=== PATIENT | female | born 1945 | race Caucasian/White ===

== ENCOUNTER 2021-03-14 10:53 | Emergency (ER) | payer MEDICARE, OTHER ==
[~2021-03-14] VITALS: Ht 162.6 cm; Wt 90.0 kg
[~2021-03-14 10:53] MED LIST: ASPI-482 PO; ATOR20TA PO; DULO60CA45 PO; HYDR-3164 PO; LEVO25TA4 PO; LISI20TA18 PO; TRAZ-118 PO; VARE1TAB5 PO
[2021-03-14 12:12] VITALS: BP 195/97
--- NOTE | 2021-03-14 12:23 | PHYS DOC ---
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 Patient was seen in the doctor's office her blood pressure [id number] and they sent her to the emergency department for evaluation. Patient states that she did not take her blood pressure medications this morning she says its been a really bad morning and that she did not sleep very well and she forgot to take her meds before going to a doctor's appointment. Patient denies chest pain, shortness of air, fever, chills, or abdominal pain at this time. Review of Systems: Review of Systems: Constitutional: Denies fever or chills. [] Eyes: Denies change in visual acuity. [] HENT: Denies nasal congestion or sore throat. [] Respiratory: Denies cough or shortness of breath. [] Cardiovascular: Denies chest pain or edema. [] GI: Denies abdominal pain, nausea, vomiting, bloody stools or diarrhea. [] : Denies dysuria. [] Musculoskeletal: Denies back pain or joint pain. [] Integument: Denies rash. [] Neurologic: Denies headache, focal weakness or sensory changes. [] Endocrine: Denies polyuria or polydipsia. [] Lymphatic: Denies swollen glands. [] Psychiatric: Denies depression or anxiety. [] Heart Score: C/O Chest Pain: N/A Risk Factors: Risk Factors: DM, Current or recent (<one month) smoker, HTN, HLP, family history of CAD, obesity. Risk Scores: Score 0 - 3: 2.5% MACE over next 6 weeks - Discharge Home Score 4 - 6: 20.3% MACE over next 6 weeks - Admit for Clinical Observation Score 7 - 10: 72.7% MACE over next 6 weeks - Early Invasive Strategies Allergies: Allergies: Allergies Coded Allergies Type Severity Reaction Last Updated Verified No Known Drug Allergies 11/15/15 No Physical Exam: PE: Constitutional: Well developed, well nourished, no acute distress, non-toxic appearance. [] HENT: Normocephalic, atraumatic, bilateral external ears normal, oropharynx moist, no oral exudates, nose normal. [] Eyes: PERRLA, EOMI, conjunctiva normal, no discharge. [] Neck: Normal range of motion, no tenderness, supple, no stridor. [] Cardiovascular:Heart rate regular rhythm, no murmur [] Lungs & Thorax: Bilateral breath sounds clear to auscultation [] Abdomen: Bowel sounds normal, soft, no tenderness, no masses, no pulsatile masses. [] Skin: Warm, dry, no erythema, no rash. [] Back: No tenderness, no CVA tenderness. [] Extremities: No tenderness, no cyanosis, no clubbing, ROM intact, no edema. [] Neurologic: Alert and oriented X 3, normal motor function, normal sensory function, no focal deficits noted. [] Psychologic: Affect normal, judgement normal, mood normal. [] Current Patient Data: Vital Signs: Vital Signs Date Time Temp Pulse Resp B/P (MAP) Pulse Ox O2 Delivery O2 Flow Rate FiO2 03/14/21 12:12 98.0 80 14 195/97 (129) 96 Room Air 98.0 EKG: EKG: [] Radiology/Procedures: Radiology/Procedures: [] Course & Med Decision Making: Course & Med Decision Making Pertinent Labs and Imaging studies reviewed. (See chart for details) Patient is asymptomatic with her elevated blood pressure. Patient will be sent home to take her medications that she has at home which is her amlodipine 5 mg. Patient is encouraged to return to the emergency department for chest pain, or shortness of air. Did confer with Dr. De La Cruz regarding this case. Amada Disclaimer: Amada Disclaimer: This electronic medical record was generated, in whole or in part, using a voice recognition dictation system. Departure Departure Impression: Primary Impression: Hypertension Qualified Codes: I10 - Essential (primary) hypertension Disposition: HOME / SELF CARE / HOMELESS Condition: STABLE Referrals: FANTASMA KEITH MD (PCP) Patient Instructions: Hypertension Additional Instructions: Take your medication as prescribed. Follow-up with Dr. Keith in the a.m. if your blood pressure continues to be elevated. Return to the emergency department for chest pain, shortness of breath, dizzi ness, or inability to use 1 side your body. KELSIE CHAVEZ [employer] TECHNICIAN Mar 14, 2021 12:23
== END 2021-03-14 13:07 | disposition home or self-care (01) ==
LOC: ER 10:53
DX: I10 Essential (primary) hypertension (principal); E03.9 Hypothyroidism, unspecified; G89.29 Other chronic pain; Z87.891 Personal history of nicotine dependence
CPT/HCPCS: 99281